=== PATIENT | female | born 1990 | race Caucasian/White ===

== ENCOUNTER → 2016-11-22 | Outpatient (CLI) | payer BC | LOC: BHSO 09:45 | DX: F41.1 Generalized anxiety disorder (principal) ==

== ENCOUNTER → 2017-03-11 | Outpatient (CLI) | payer BC | LOC: BHSO 15:18 | DX: F41.1 Generalized anxiety disorder (principal) ==

== ENCOUNTER → 2017-06-16 | Outpatient (CLI) | payer BC | LOC: BHSO 14:43 | DX: F41.1 Generalized anxiety disorder (principal) ==

== ENCOUNTER → 2017-09-22 | Outpatient (CLI) | payer BC | LOC: BHSO 15:05 | DX: F41.1 Generalized anxiety disorder (principal) ==

== ENCOUNTER → 2018-04-20 | Outpatient (CLI) | payer SELFPAY | LOC: BHSO 13:54 | DX: F33.42 Major depressive disorder, recurrent, in full remission (principal) | CPT/HCPCS: G0463 ==

== ENCOUNTER → 2018-10-26 | Outpatient (CLI) | payer SELFPAY | LOC: BHSO 13:13 | DX: F33.42 Major depressive disorder, recurrent, in full remission (principal) | CPT/HCPCS: G0463 ==

== ENCOUNTER → 2019-04-12 | Outpatient (CLI) | payer SELFPAY | LOC: BHSO 13:15 | DX: F41.1 Generalized anxiety disorder (principal) | CPT/HCPCS: G0463 ==

== ENCOUNTER → 2019-07-19 | Outpatient (CLI) | payer SELFPAY | LOC: BHSO 15:15 | DX: F33.41 Major depressive disorder, recurrent, in partial remission (principal) | CPT/HCPCS: G0463 ==

== ENCOUNTER → 2019-08-16 | Outpatient (CLI) | payer SELFPAY | LOC: BHSO 08:01 | DX: F33.42 Major depressive disorder, recurrent, in full remission (principal) | CPT/HCPCS: G0463 ==

== ENCOUNTER → 2019-11-08 | Outpatient (CLI) | payer SELFPAY | LOC: BHSO 08:21 | DX: F41.1 Generalized anxiety disorder (principal) | CPT/HCPCS: G0463 ==

== ENCOUNTER → 2020-04-24 | Outpatient (CLI) | payer SELFPAY | LOC: BHSO 08:04 | DX: F41.1 Generalized anxiety disorder (principal) | CPT/HCPCS: G0463 ==